=== PATIENT | female | born 1955 | race Two or more races ===

== ENCOUNTER 2023-07-22 05:31 | Day surgery (SDC) | payer OTHER ==
[2023-07-16 11:57] LABS: PH,URINE 6.5 (5.0-8.0); URINE APPEARANCE Clear; URINE BILIRRUBIN Negative (NEGATIVE); URINE BLOOD Negative; URINE COLOR Yellow; URINE LEUKOCYTE Small; URINE NITRATE Negative; URINE PROTEIN Negative (NEGATIVE)
[2023-07-16 11:58] LABS: URINE BACTERIA 115.8 uL (0.0-1933); URINE EPITHELIAL CELLS 26.5 uL (0.0-38.8); URINE RBC 2.2 uL (0.0-20.8); URINE WBC 44.7 uL (0.0-23.2)
[2023-07-16 11:59] LABS: HEMATOCRIT 40.9 % (36.0-45.00); HEMOGLOBIN 12.9 g/dL (12.0-15.00); MEAN CORPUSCULAR HEMOGLOBIN 28.3 pg (27.00-32.0); MEAN CORPUSCULAR HGB CONC 31.4 g/dl (32.0-36.0); PLATELET COUNT 173 K/uL (150-450); RED BLOOD COUNT 4.54 M/uL (4.00-6.00); RED CELL DISTRIBUTION WIDTH 13.7 % (11.5-14.5)
[2023-07-16 12:09] LABS: URINE GLUCOSE 500 MG/DL (NEGATIVE)
[2023-07-16 12:34] LABS: INR 1.09; PARTIAL THROMBOPLASTIN TIME 26.8 SECONDS (22.0-34.0); PROTHROMBIN TIME 11.4 SECONDS (9.0-11.5)
[2023-07-16 12:42] LABS: ALBUMIN 3.7 gm/dL (3.4-5.0); BILIRUBIN TOTAL 0.37 mg/dL (0.3-1.2); CREATININE SERUM 0.74 mg/dL (0.55-1.02); GFR 78.28; GLOBULINA 3.8 G/DL (2.4-3.5); POTASSIUM 4.89 mEq/L (3.5-5.1); TOTAL PROTEIN 7.5 gm/dL (6.4-8.2)
[~2023-07-22 05:31] MED LIST: AMLODIP PO; ATORVASTATIN CA40 MG PO; FAMOTI PO; GABAP PO; JARDIANCE10 MG PO; LOPERAMIDE2 M1 PO; LOSARTAN-HCTZ1 EAC2 PO; RESTORIL30 M1 PO; SYNTHROID150 MCG PO; [UNRECOGNIZED DRUG - OTHER]
== END 2023-07-22 10:55 | disposition home or self-care (01) ==
LOC: CIR.AMB 05:31
PROVIDERS: ATTEND Colon & Rectal Surgery
DX: R15.9 Full incontinence of feces (principal); Z88.6 Allergy status to analgesic agent; Z20.822 Contact with and (suspected) exposure to COVID-19; I10 Essential (primary) hypertension
CPT/HCPCS: 64581; 95972; C1767

== ENCOUNTER 2023-08-05 07:20 | Day surgery (SDC) | payer OTHER | END 2023-08-05 16:20 | disposition home or self-care (01) | LOC: CIR.AMB 07:20 | PROVIDERS: ATTEND Colon & Rectal Surgery | DX: R15.9 Full incontinence of feces (principal); Z88.6 Allergy status to analgesic agent; Z20.822 Contact with and (suspected) exposure to COVID-19 | CPT/HCPCS: 64590; 95972; C1767 ==